=== PATIENT | male | born 1960 | race Caucasian/White ===

== ENCOUNTER 2020-05-28 17:38 | Emergency (ER) | payer MEDICARE ==
[2020-05-28 17:53] VITALS: BP 125/65; PULSE 126
--- NOTE | 2020-05-28 18:20 | EDM.PDOC ---
ED HPI GENERAL MEDICAL PROBLEM - General Chief Complaint: Neurological Problem Stated Complaint: [facility]IA [facility] Time Seen by Provider: 05/28/20 18:20 Source of Information: Reports: Patient History Limitations: Reports: No Limitations - History of Present Illness INITIAL COMMENTS - FREE TEXT/NARRATIVE: pt has a life long history of etoh abuse starting when he was in his teens. He was sent from [facility] on a medical 72 hour hold. He was given valium this am. H e hd a sizure this afternoon thast was fairly sustained. He was given versed in the ambulance to stop it and he is quite sleepy and difficult to get a history. Onset: Today, Sudden Duration: Hour(s): Location: Reports: Head, Generalized Associated Symptoms: Reports: Seizure, Weakness - Related Data Allergies Allergy/AdvReac Type Severity Reaction Status Date / Time sertraline HCl [From Zoloft] Allergy Cannot Verified 05/28/20 17:54 Remember Home Meds: Home Meds Naproxen [Naprosyn] 500 mg PO BID PRN #0 tablet 04/05/16 [Rx] Phenytoin 300 mg PO DAILY cap.er 04/05/16 [Rx] levETIRAcetam [Keppra] 0 mg PO BID 05/28/20 [History] Past Medical History Cardiovascular History: Reports: Hypertension Neurological History: Reports: Seizure Psychiatric History: Reports: Addiction - Infectious Disease History Infectious Disease History: Reports: Other (See Below) Other Infectious Disease History: unknown - Past Surgical History Musculoskeletal Surgical History: Reports: Other (See Below) Social & Family History - Tobacco Use Smoking Status *Q: Unknown Ever Smoked ED ROS GENERAL - Review of Systems Review Of Systems: See Below Constitutional: Reports: Weakness HEENT: Reports: Other (mouth is very dry. ) Respiratory: Reports: No Symptoms Cardiovascular: Reports: No Symptoms Endocrine: Reports: No Symptoms GI/Abdominal: Reports: No Symptoms : Reports: No Symptoms Musculoskeletal: Reports: No Symptoms Skin: Reports: No Symptoms Neurological: Reports: Seizure - Physical Exam Exam: See Below Text/Narrative:: pt arrived very sleepy but he had been iven versed 5 mg in the ambulance. He was given 2 liters of fluid and a banna bag was hung. He has become more alert and he is drinking water. He had his last drink early this am. He had 2 seizures and was sent from [place]. He was given keppara 500mg iv and 250 orally. He has not had further sizure activity. He was found to have a co2 on his electrolytes. His bs is normal. He has been hydrated and a repeat set of electrolytes were obtained. Exam Limited By: No Limitations General Appearance: Alert, Other ( quite sleepy at this time. Pupils are equal and reactive. ) Ears: Normal TMs Nose: Normal Inspection Throat/Mouth: Normal Inspection Head Exam: Atraumatic Neck: Normal Inspection Respiratory/Chest: No Respiratory Distress Cardiovascular: Regular Rate, Rhythm, Tachycardia GI/Abdominal: Soft, Non-Tender (Male) Exam: Deferred Rectal (Males) Exam: Deferred Neuro Exam (Abbreviated): Alert, Oriented, Normal Cognition, Other (pt was very sleepyu at first he has now cleared and has eaten. He had a co2 ) Course - Vital Signs Last Recorded V/S: Last Vital Signs Temp 37.0 C 05/28/20 18:19 Pulse 126 H 05/28/20 18:19 Resp 18 05/28/20 18:19 BP 125/65 05/28/20 18:19 Pulse Ox 93 L 05/28/20 18:19 - Orders/Labs/Meds Orders: Active Orders 24 hr Category Date Time Status CULTURE URINE [RM] Stat Lab 05/28/20 20:50 Received MVI, Adult with Vitamin K [Infuvite Adult] 10 ml Med 05/28/20 21:15 Active Thiamine [Vitamin B-1] 100 mg Folic Acid 1 mg Magnesium Sulfate [Magnesium Sulfate 50%] 3 gm Sodium Chloride 0.9% [Normal Saline] 1,000 ml IV ASDIRECTED Sodium Chloride 0.9% [Normal Saline] 1,000 ml Med 05/28/20 18:30 Active IV ASDIRECTED Sodium Chloride 0.9% [Normal Saline] 1,000 ml Med 05/28/20 19:45 Active IV ASDIRECTED levETIRAcetam [Keppra] Med 05/29/20 09:00 Once 500 mg PO BID ONE Medication Orders Sodium Chloride (Normal Saline) 1,000 mls @ 999 mls/hr IV ASDIRECTED JERI Last Admin: 05/28/20 20:23 Dose: 999 mls/hr Documented by: Infusion: 05/28/20 19:46 Dose: 999 mls/hr Documented by: Admin: 05/28/20 18:45 Dose: 999 mls/hr Documented by: DONALDO Sodium Chloride (Normal Saline) 1,000 mls @ 999 mls/hr IV ASDIRECTED [facility] Last Admin: 05/28/20 20:23 Dose: 999 mls/hr Documented by: DONALDO Multivitamins/Minerals 10 ml/Thiamine HCl 100 mg/ Folic Acid 1 mg/ Magnesium Sulfate 3 gm/ Sodium Chloride 1,017.2 mls @ 400 mls/hr IV ASDIRECTED JERI Last Admin: 05/28/20 22:15 Dose: 400 mls/hr Documented by: MAEVE Levetiracetam (Keppra) 500 mg PO BID ONE Stop: 05/29/20 09:01 Last Admin: 05/28/20 23:22 Dose: 500 mg Documented by: ERIKA Labs: Laboratory Tests 05/28/20 05/28/20 05/28/20 Range/Units 18:13 18:27 18:27 WBC 3.6 L (4.5-11.0) K/uL RBC 3.78 L (4.30-5.90) M/uL Hgb 12.7 (12.0-15.0) g/dL Hct 38.6 L (40.0-54.0) % MCV 102 H (80-98) fL MCH 34 H (27-31) pg MCHC 33 (32-36) % Plt Count 74 L (150-400) K/uL Neut % (Auto) 64 (36-66) % Lymph % (Auto) 19 L (24-44) % [place] % (Auto) 14 H (2-6) % Eos % (Auto) 3 (2-4) % Baso % (Auto) 1 (0-1) % Puncture Site ABG pH (7.350-7.450) ABG pCO2 (35.0-42.0) mmHg ABG pO2 (75.0-100.0) mmHg ABG HCO3 (22.0-26.0) mmol/L ABG Total CO2 (23.0-27.0) mmol/L ABG O2 Saturation (95.0-98.0) % ABG O2 Content (15.0-23.0) %vol ABG Base Excess mm/L ABG Hemoglobin (13.5-18.0) g/dL ABG Oxyhemoglobin % ABG Carboxyhemoglobin (0.0-1.6) % ABG Methemoglobin % Soren Test O2 Delivery Device Sodium 140 (140-148) mmol/L Potassium 4.6 (3.6-5.2) mmol/L Chloride 104 (100-108) mmol/L Carbon Dioxide 13 L (21-32) mmol/L Anion Gap 27.6 H (5.0-14.0) mmol/L BUN 12 (7-18) mg/dL Creatinine 1.1 D (0.8-1.3) mg/dL Est Cr Clr Drug Dosing 73.74 mL/min Estimated GFR (MDRD) > 60 (>60) Glucose 107 H (74-106) mg/dL Calcium 8.5 (8.5-10.1) mg/dL Magnesium (1.8-2.4) mg/dL Total Bilirubin 1.0 D (0.2-1.0) mg/dL AST 165 H D (15-37) U/L ALT 83 H (12-78) U/L Alkaline Phosphatase 190 H (46-116) U/L Total Protein 7.9 (6.4-8.2) g/dL Albumin 3.1 L (3.4-5.0) g/dL Globulin 4.8 H (2.3-3.5) g/dL Albumin/Globulin Ratio 0.7 L (1.2-2.2) Urine Color (YELLOW) Urine Appearance (CLEAR) Urine pH (5.0-8.0) Ur Specific [place] (1.008-1.030) Urine Protein (NEGATIVE) mg/dL Urine Glucose (UA) (NEGATIVE) mg/dL Urine Ketones (NEGATIVE) mg/dL Urine Occult Blood (NEGATIVE) Urine Nitrite (NEGATIVE) Urine Bilirubin (NEGATIVE) Urine Urobilinogen (0.2-1.0) EU/dL Ur Leukocyte Esterase (NEGATIVE) Urine RBC (0-5) Urine WBC (0-5) Ur Epithelial Cells Amorphous Sediment Urine Bacteria Urine Mucus Urine Opiates Screen (NEGATIVE) Ur Oxycodone Screen (NEGATIVE) Urine Methadone Screen (NEGATIVE) Ur Propoxyphene Screen (NEGATIVE) Ur Barbiturates Screen (NEGATIVE) Ur Tricyclics Screen (NEGATIVE) Ur Phencyclidine Scrn (NEGATIVE) Ur Amphetamine Screen (NEGATIVE) U Methamphetamines Scrn (NEGATIVE) Urine MDMA Screen (NEGATIVE) U Benzodiazepines Scrn (NEGATIVE) U Cocaine Metab Screen (NEGATIVE) U Marijuana (THC) Screen (NEGATIVE) Ethyl Alcohol 55 mg/dL 05/28/20 05/28/20 05/28/20 Range/Units 18:52 20:18 20:50 WBC (4.5-11.0) K/uL RBC (4.30-5.90) M/uL Hgb (12.0-15.0) g/dL Hct (40.0-54.0) % MCV (80-98) fL MCH (27-31) pg MCHC (32-36) % Plt Count (150-400) K/uL Neut % (Auto) (36-66) % Lymph % (Auto) (24-44) % [place] % (Auto) (2-6) % Eos % (Auto) (2-4) % Baso % (Auto) (0-1) % Puncture Site Rt.radial ABG pH 7.359 (7.350-7.450) ABG pCO2 32.6 L (35.0-42.0) mmHg ABG pO2 84.3 (75.0-100.0) mmHg ABG HCO3 17.9 L (22.0-26.0) mmol/L ABG Total CO2 16.4 L (23.0-27.0) mmol/L ABG O2 Saturation 94.7 L (95.0-98.0) % ABG O2 Content 15.4 (15.0-23.0) %vol ABG Base Excess -6.2 mm/L ABG Hemoglobin 11.8 L (13.5-18.0) g/dL ABG Oxyhemoglobin 92.3 % ABG Carboxyhemoglobin 1.7 H (0.0-1.6) % ABG Methemoglobin 0.8 % Soren Test Passed O2 Delivery Device Room air Sodium (140-148) mmol/L Potassium (3.6-5.2) mmol/L Chloride (100-108) mmol/L Carbon Dioxide (21-32) mmol/L Anion Gap (5.0-14.0) mmol/L BUN (7-18) mg/dL Creatinine (0.8-1.3) mg/dL Est Cr Clr Drug Dosing mL/min Estimated GFR (MDRD) (>60) Glucose (74-106) mg/dL Calcium (8.5-10.1) mg/dL Magnesium 2.0 (1.8-2.4) mg/dL Total Bilirubin (0.2-1.0) mg/dL AST (15-37) U/L ALT (12-78) U/L Alkaline Phosphatase (46-116) U/L Total Protein (6.4-8.2) g/dL Albumin (3.4-5.0) g/dL Globulin (2.3-3.5) g/dL Albumin/Globulin Ratio (1.2-2.2) Urine Color Yellow (YELLOW) Urine Appearance Slightly cloudy A (CLEAR) Urine pH 6.0 (5.0-8.0) Ur Specific [place] >= 1.030 (1.008-1.030) Urine Protein 30 H (NEGATIVE) mg/dL Urine Glucose (UA) Negative (NEGATIVE) mg/dL Urine Ketones Negative (NEGATIVE) mg/dL Urine Occult Blood Trace-intact H (NEGATIVE) Urine Nitrite Negative (NEGATIVE) Urine Bilirubin Negative (NEGATIVE) Urine Urobilinogen 0.2 (0.2-1.0) EU/dL Ur Leukocyte Esterase Negative (NEGATIVE) Urine RBC 5-10 H (0-5) Urine WBC Not seen (0-5) Ur Epithelial Cells Not seen Amorphous Sediment Few Urine Bacteria Moderate Urine Mucus Few Urine Opiates Screen (NEGATIVE) Ur Oxycodone Screen (NEGATIVE) Urine Methadone Screen (NEGATIVE) Ur Propoxyphene Screen (NEGATIVE) Ur Barbiturates Screen (NEGATIVE) Ur Tricyclics Screen (NEGATIVE) Ur Phencyclidine Scrn (NEGATIVE) Ur Amphetamine Screen (NEGATIVE) U Methamphetamines Scrn (NEGATIVE) Urine MDMA Screen (NEGATIVE) U Benzodiazepines Scrn (NEGATIVE) U Cocaine Metab Screen (NEGATIVE) U Marijuana (THC) Screen (NEGATIVE) Ethyl Alcohol mg/dL 05/28/20 05/28/20 Range/Units 20:50 21:04 WBC (4.5-11.0) K/uL RBC (4.30-5.90) M/uL Hgb (12.0-15.0) g/dL Hct (40.0-54.0) % MCV (80-98) fL MCH (27-31) pg MCHC (32-36) % Plt Count (150-400) K/uL Neut % (Auto) (36-66) % Lymph % (Auto) (24-44) % [place] % (Auto) (2-6) % Eos % (Auto) (2-4) % Baso % (Auto) (0-1) % Puncture Site ABG pH (7.350-7.450) ABG pCO2 (35.0-42.0) mmHg ABG pO2 (75.0-100.0) mmHg ABG HCO3 (22.0-26.0) mmol/L ABG Total CO2 (23.0-27.0) mmol/L ABG O2 Saturation (95.0-98.0) % ABG O2 Content (15.0-23.0) %vol ABG Base Excess mm/L ABG Hemoglobin (13.5-18.0) g/dL ABG Oxyhemoglobin % ABG Carboxyhemoglobin (0.0-1.6) % ABG Methemoglobin % Soren Test O2 Delivery Device Sodium 142 (140-148) mmol/L Potassium 3.7 (3.6-5.2) mmol/L Chloride 109 H (100-108) mmol/L Carbon Dioxide 25 (21-32) mmol/L Anion Gap 11.7 (5.0-14.0) mmol/L BUN (7-18) mg/dL Creatinine (0.8-1.3) mg/dL Est Cr Clr Drug Dosing mL/min Estimated GFR (MDRD) (>60) Glucose (74-106) mg/dL Calcium (8.5-10.1) mg/dL Magnesium (1.8-2.4) mg/dL Total Bilirubin (0.2-1.0) mg/dL AST (15-37) U/L ALT (12-78) U/L Alkaline Phosphatase (46-116) U/L Total Protein (6.4-8.2) g/dL Albumin (3.4-5.0) g/dL Globulin (2.3-3.5) g/dL Albumin/Globulin Ratio (1.2-2.2) Urine Color (YELLOW) Urine Appearance (CLEAR) Urine pH (5.0-8.0) Ur Specific [place] (1.008-1.030) Urine Protein (NEGATIVE) mg/dL Urine Glucose (UA) (NEGATIVE) mg/dL Urine Ketones (NEGATIVE) mg/dL Urine Occult Blood (NEGATIVE) Urine Nitrite (NEGATIVE) Urine Bilirubin (NEGATIVE) Urine Urobilinogen (0.2-1.0) EU/dL Ur Leukocyte Esterase (NEGATIVE) Urine RBC (0-5) Urine WBC (0-5) Ur Epithelial Cells Amorphous Sediment Urine Bacteria Urine Mucus Urine Opiates Screen Negative (NEGATIVE) Ur Oxycodone Screen Negative (NEGATIVE) Urine Methadone Screen Negative (NEGATIVE) Ur Propoxyphene Screen Negative (NEGATIVE) Ur Barbiturates Screen Negative (NEGATIVE) Ur Tricyclics Screen Negative (NEGATIVE) Ur Phencyclidine Scrn Negative (NEGATIVE) Ur Amphetamine Screen Negative (NEGATIVE) U Methamphetamines Scrn Negative (NEGATIVE) Urine MDMA Screen Negative (NEGATIVE) U Benzodiazepines Scrn Presumptive positive H (NEGATIVE) U Cocaine Metab Screen Negative (NEGATIVE) U Marijuana (THC) Screen Negative (NEGATIVE) Ethyl Alcohol mg/dL Meds: Medications Generic Name Dose Route Start Last Admin Trade Name Freq PRN Reason Stop Dose Admin Sodium Chloride 1,000 mls @ 999 mls/hr 05/28/20 18:30 05/28/20 20:23 Normal Saline IV 999 mls/hr ASDIRECTED JERI Administration Sodium Chloride 1,000 mls @ 999 mls/hr 05/28/20 19:45 05/28/20 20:23 Normal Saline IV 999 mls/hr ASDIRECTED JERI Administration Multivitamins/Minerals 10 ml/ 1,017.2 mls @ 400 mls/hr 05/28/20 21:15 05/28/20 22:15 Thiamine HCl 100 mg/ Folic IV 400 mls/hr Acid 1 mg/ Magnesium Sulfate 3 ASDIRECTED JERI Administration gm/ Sodium Chloride Levetiracetam 500 mg 05/29/20 09:00 05/28/20 23:22 Keppra PO 05/29/20 09:01 500 mg BID ONE Administration Discontinued Medications Generic Name Dose Route Start Last Admin Trade Name Freq PRN Reason Stop Dose Admin Levetiracetam 500 mg/ Sodium 105 mls @ 400 mls/hr 05/28/20 18:21 05/28/20 18:44 Chloride IV 05/28/20 18:35 400 mls/hr ONETIME ONE Administration Levetiracetam 250 mg 05/28/20 18:22 08/15/20 18:44 Keppra PO 05/28/20 18:23 250 mg BID ONE Administration Levetiracetam Confirm 05/28/20 23:18 Keppra Administered 05/28/20 23:19 Dose 250 mg .ROUTE .STK-MED ONE Levetiracetam Confirm 05/28/20 23:20 Keppra Administered 05/28/20 23:21 Dose 250 mg .ROUTE .STK-MED ONE - Re-Assessments/Exams Free Text/Narrative Re-Assessment/Exam: 05/28/20 21:54 pt was found to have a co2 on the electrolytes of 13. He was given 2 liters of fluid and now a bannana bag was hung. He has not had further sizure activity. He is becoming more alert. 05/28/20 21:59 pt was given keppara 500mg iv and 250 mg orally. Departure - Departure Time of Disposition: 23:41 Disposition: Home, Self-Care 01 Condition: Fair Clinical Impression: Observed seizure-like activity, Dehydration, ETOH abuse - Discharge Information Instructions: Seizure, Adult, [id number] Referrals: PCP,None [Primary Care Provider] - Forms: ED Department Discharge Care Plan Goals: keppara 500mg bid, push fluids, rtc if any further problems. Sepsis Event Note (ED) - Evaluation Sepsis Screening Result: No Definite Risk - Focused Exam Vital Signs: Vital Signs Temp Pulse Resp BP Pulse Ox 05/28/20 18:19 37.0 C 126 H 18 125/65 93 L 05/28/20 17:51 37.0 C 126 H 18 125/65 93 L - My Orders Last 24 Hours: My Active Orders 05/28/20 18:30 Sodium Chloride 0.9% [Normal Saline] 1,000 ml IV ASDIRECTED 05/28/20 19:45 Sodium Chloride 0.9% [Normal Saline] 1,000 ml IV ASDIRECTED 05/28/20 20:50 CULTURE URINE [RM] Stat 05/28/20 21:15 MVI, Adult with Vitamin K [Infuvite Adult] 10 ml Thiamine [Vitamin B-1] 100 mg Folic Acid 1 mg Magnesium Sulfate [Magnesium Sulfate 50%] 3 gm Sodium Chloride 0.9% [Normal Saline] 1,000 ml IV ASDIRECTED 05/29/20 09:00 levETIRAcetam [Keppra] 500 mg PO BID ONE - Assessment/Plan Last 24 Hours: My Active Orders 05/28/20 18:30 Sodium Chloride 0.9% [Normal Saline] 1,000 ml IV ASDIRECTED 05/28/20 19:45 Sodium Chloride 0.9% [Normal Saline] 1,000 ml IV ASDIRECTED 05/28/20 20:50 CULTURE URINE [RM] Stat 05/28/20 21:15 MVI, Adult with Vitamin K [Infuvite Adult] 10 ml Thiamine [Vitamin B-1] 100 mg Folic Acid 1 mg Magnesium Sulfate [Magnesium Sulfate 50%] 3 gm Sodium Chloride 0.9% [Normal Saline] 1,000 ml IV ASDIRECTED 05/29/20 09:00 levETIRAcetam [Keppra] 500 mg PO BID ONE
[2020-05-28] MEDS ORDERED: levETIRAcetam 500 MG in Sodium Chloride 0.9% 100 ML IV ONE (18:21)
[2020-05-28] MEDS ORDERED: levETIRAcetam 250 MG Tab PO ONE (18:22)
[2020-05-28] MEDS: Sodium Chloride 0.9% 1,000 ML IV SCH ×2 (18:45→20:23)
[2020-05-28] MEDS ORDERED: Sodium Chloride 0.9% 1,000 ML IV SCH (19:45)
[2020-05-28] MEDS ORDERED: MVI, Adult with Vitamin K 10 ML, Thiamine 100 MG, Folic Acid 1 MG, Magnesium Sulfate 3 ... IV SCH ×5 (21:15)
[2020-05-28] MEDS ORDERED: levETIRAcetam 250 MG Tab ONE ×2 (23:18→23:20)
[2020-05-29] MEDS ORDERED: levETIRAcetam 250 MG Tab PO ONE (09:00)
== END 2020-05-28 23:48 | disposition home or self-care (01) ==
LOC: JP.ED 17:38
DX: R25.9 Unspecified abnormal involuntary movements (principal); E86.0 Dehydration; F10.10 Alcohol abuse, uncomplicated; I10 Essential (primary) hypertension; Z88.8 Allergy status to other drugs, medicaments and biological substances; Z79.899 Other long term (current) drug therapy; Y90.2 Blood alcohol level of 40-59 mg/100 ml
CPT/HCPCS: 36415; 36600; 80051; 80053; 80305; 80307; 81001; 82803; 83735; 85025; 87086; 96365; 96366; 96367; 99285; A9270; J1953; J3411; J3475; J7030; J7050; 99284; J3490